=== PATIENT | male | born 1960 | race Caucasian/White ===

== ENCOUNTER 2023-11-25 11:04 | Inpatient (IN) | payer SELFPAY ==
[2023-11-25] MEDS ORDERED: Bisacodyl 5 MG TAB PO PRN (12:25)
[2023-11-25] MEDS ORDERED: Ondansetron PF 4 MG/2 ML Vial IVP PRN (12:25)
[2023-11-25 12:40] VITALS: BMI 32.4
[2023-11-25] MEDS ORDERED: Nitroglycerin 50 MG/250 ML BOT 250 ML IVPB SCH (13:00)
[2023-11-25 13:19] LABS: Troponin I 0.048 ng/mL (< 0.028)
[2023-11-25] MEDS: Morphine 4 MG/ML VIAL ONE (13:21)
[2023-11-25] MEDS: Furosemide 40 MG (4 mL) VIAL SLOW IVP SCH (13:22)
[2023-11-25] MEDS: Nicotine 14 MG PATCH TD SCH (13:22)
[2023-11-25] MEDS: Acetaminophen 325 MG TAB PO SCH (13:22)
[2023-11-25] MEDS ORDERED: hydrALAZINE 20 MG/ML VIAL SLOW IVP PRN (18:48)
[2023-11-25] MEDS: Aspirin 81 mg Enteric Coated Tablet PO SCH (19:56)
[2023-11-25] MEDS: Lisinopril 10 MG TAB PO SCH (19:56)
[2023-11-25] MEDS: Morphine 4 MG/ML VIAL SLOW IVP PRN (20:01)
[2023-11-26 07:32] LABS: #Basophils Less than 0.03 10x3/uL (0.0-0.2); %Basophils 0.1 % (0.0-1.0); %Eosinophils 0.2 % (0.0-10.0); %Monocytes 6.4 % (0.0-10.0); %Neutrophils 81.8 % (42.0-75.0); Hematocrit 44.5 % (42.0-52.0); Hemoglobin 14.2 g/dL (14.0-18.0); Mean Corpuscular HGB CONC 31.9 g/dL (32.0-36.0); Mean Corpuscular Hemoglobin 30.3 pg (27.0-31.0); Mean Corpuscular Volume 94.9 fL (78.0-98.0); Mean Platelet Volume 9.8 fL (7.4-10.4); Platelet Count 349 10x3/uL (130-400); RBC Distribution Width 15.4 % (11.5-14.5); Red Blood Cell (RBC) Count 4.69 mill/uL (4.70-6.10)
[2023-11-26 07:49] LABS: Anion Gap 12 mmol/L (10-20); BUN (Urea Nitrogen) 25 mg/dL (8.4-25.7); Calc. Creatinine Clearance 127 mL/min (70-130); Calcium 8.8 mg/dL (7.8-10.44); Carbon Dioxide 27 mmol/L (23-31); Cardiac Risk 4.2 (Less than 4.5); Chloride 103 mmol/L (98-107); Cholesterol 181 mg/dl (< 200 Desired); Estimated GFR 86; Glucose 113 mg/dL (80-115); HDL Cholesterol 43 mg/dL (>60 Neg Risk); LDL Cholesterol, Calculated 121 mg/dL; Potassium 4.2 mmol/L (3.5-5.1); Sodium 138 mmol/L (136-145); Triglycerides 84 mg/dL (Less than 150)
[2023-11-26] MEDS: Carvedilol 3.125 MG TAB PO SCH (08:32)
[2023-11-26] MEDS: Aspirin 81 mg Enteric Coated Tablet PO SCH (08:32)
[2023-11-26] MEDS: Enoxaparin 40 MG (0.4 mL) SYRINGE SC SCH (08:32)
[2023-11-26] MEDS: traMADol HCl 50 MG TAB PO PRN (08:33)
[2023-11-26] MEDS: Lisinopril 10 MG TAB PO SCH (08:33)
[2023-11-26] MEDS: Atorvastatin Calcium 40 MG TAB PO SCH (20:48)
[2023-11-27] MEDS: Acetaminophen 325 MG TAB PO PRN (04:08)
[2023-11-27] MEDS ORDERED: Communication Order-Pharmacy FS SCH (07:45)
[2023-11-27] MEDS: Lisinopril 10 MG TAB PO SCH (07:54)
[2023-11-27] MEDS: Furosemide 40 MG (4 mL) VIAL SLOW IVP SCH (07:57)
[2023-11-27] MEDS: traMADol HCl 50 MG TAB PO PRN (09:32)
[2023-11-28 04:46] LABS: Anion Gap 12 mmol/L (10-20); BUN (Urea Nitrogen) 35 mg/dL (8.4-25.7); Calc. Creatinine Clearance 126 mL/min (70-130); Calcium 9.7 mg/dL (7.8-10.44); Carbon Dioxide 31 mmol/L (23-31); Chloride 95 mmol/L (98-107); Estimated GFR 86; Glucose 130 mg/dL (80-115); Potassium 3.8 mmol/L (3.5-5.1); Sodium 134 mmol/L (136-145)
[2023-11-28] MEDS: Sodium Chloride 0.9% 1,000 ML IV SCH ×2 (05:29→08:22)
[2023-11-28] MEDS ORDERED: Heparin 10,000 UNITS/ 10 ML VIAL ONE (06:20)
[2023-11-28] MEDS ORDERED: fentaNYL 50 mcg/mL 1 mL Vial ONE (07:11)
[2023-11-28] MEDS ORDERED: Midazolam HCl 2 mg/2 ml Vial ONE (07:11)
[2023-11-28] MEDS ORDERED: Protamine Sulfate 50 MG/5 ML VIAL ONE (07:22)
[2023-11-28] MEDS ORDERED: Acetaminophen/Codeine 30-300mg Tablet PO PRN (07:45)
[2023-11-28] MEDS ORDERED: Nitroglycerin 0.4 MG TAB (25 Tab Bottle) SL PRN (07:45)
[2023-11-28] MEDS: Sodium Chloride 0.9% 200 ML IV SCH (08:22)
[2023-11-28] MEDS ORDERED: Iopamidol 370 76% 100 ML VIAL ONE (12:16)
[2023-11-28] MEDS: Furosemide 20 MG (2 mL) VIAL SLOW IVP SCH (17:01)
[2023-11-28] MEDS: Atorvastatin Calcium 20 MG TAB PO SCH (20:46)
[2023-11-29 04:47] LABS: Anion Gap 12 mmol/L (10-20); BUN (Urea Nitrogen) 24 mg/dL (8.4-25.7); Calc. Creatinine Clearance 158 mL/min (70-130); Calcium 9.4 mg/dL (7.8-10.44); Carbon Dioxide 31 mmol/L (23-31); Chloride 95 mmol/L (98-107); Estimated GFR 100; Glucose 121 mg/dL (80-115); Potassium 3.6 mmol/L (3.5-5.1); Sodium 134 mmol/L (136-145)
[2023-11-29] MEDS: Furosemide 20 MG TAB PO SCH (08:21)
[2023-11-29] MEDS: Acetaminophen/Codeine 30-300mg Tablet PO PRN (13:16)
[2023-11-30 04:55] LABS: Anion Gap 15 mmol/L (10-20); BUN (Urea Nitrogen) 23 mg/dL (8.4-25.7); Calc. Creatinine Clearance 151 mL/min (70-130); Calcium 9.3 mg/dL (7.8-10.44); Carbon Dioxide 24 mmol/L (23-31); Chloride 96 mmol/L (98-107); Estimated GFR 98; Glucose 103 mg/dL (80-115); Potassium 3.9 mmol/L (3.5-5.1); Sodium 131 mmol/L (136-145)
[2023-11-30 08:36] VITALS: TEMP 98.1
[2023-11-30 12:11] VITALS: BP 123/81
== END 2023-11-30 14:55 | disposition home or self-care (01) | DRG 286 ==
LOC: CCU 11:04 → IMCU/EMU 11-27 22:02 → 2NO 11-29 08:50
PROVIDERS: ADMIT Internal Medicine; ATTEND Internal Medicine
PROC: 4A023N7 Measurement of Cardiac Sampling and Pressure, Left Heart, Percutaneous Approach (ICD-10-PCS; principal; 2023-11-28)
PROC: B2111ZZ Fluoroscopy of Multiple Coronary Arteries using Low Osmolar Contrast (ICD-10-PCS; 2023-11-28)
PROC: B2151ZZ Fluoroscopy of Left Heart using Low Osmolar Contrast (ICD-10-PCS; 2023-11-28)
DX: I11.0 Hypertensive heart disease with heart failure (principal); I50.21 Acute systolic (congestive) heart failure; J96.01 Acute respiratory failure with hypoxia; I16.1 Hypertensive emergency; F15.10 Other stimulant abuse, uncomplicated; I42.8 Other cardiomyopathies; Z91.148 Patient's other noncompliance with medication regimen for other reason
CPT/HCPCS: 36415; 71045; 80048; 80061; 85025; 85347; 93005; 93010; 93306; 93458; 93798; 94660; 99152; C1769; J1644; J1650; J1940; J2250; J2270; J2272; J2720; J3010; J7030; Q9967